=== PATIENT | female | born 1980 | race Caucasian/White ===

== ENCOUNTER 2020-07-16 09:00 | Observation (INO) | payer OTHER ==
[~2020-07-16] VITALS: Ht 162.6 cm; Wt 69.4 kg
[2020-07-16 10:31] VITALS: BP 107/60
[2020-07-16 10:38] LABS: BASOPHILS % (AUTO) 0.4 % (0.0-2.0); EOSINOPHILS % (AUTO) 0.5 % (1.0-6.0); HEMATOCRIT 32.3 % (36-46); HEMOGLOBIN 10.6 g/dL (12.0-16.0); LYMPHOCYTES # (AUTO) 1.4 K/uL (1.0-4.8); LYMPHOCYTES % (AUTO) 17.8 % (22.0-44.0); MEAN CORPUSCULAR HEMOGLOBIN 28.2 pg (26.0-34.0); MEAN CORPUSCULAR HGB CONC 32.9 G/dL (31.0-37.0); MEAN CORPUSCULAR VOLUME 86 fL (80-100); MONOCYTES # (AUTO) 0.4 K/uL (0.1-1.0); MONOCYTES % (AUTO) 5.1 % (2.0-9.0); NEUTROPHILS # (AUTO) 6.2 K/uL (1.8-7.7); NEUTROPHILS % (AUTO) 76.2 % (40.0-70.0); PLATELET COUNT (AUTO) 262 K/uL (150-450); RED BLOOD CELL COUNT(AUTO) 3.77 MIL/uL (4.00-5.20); RED CELL DISTRIBUTION WIDTH 14.7 % (11.5-14.5)
[2020-07-16 11:21] LABS: COVID AG,FIA SOURCE NASOPHARYNGEAL
== END 2020-07-16 11:40 | disposition home or self-care (01) ==
LOC: 4S 09:00
PROVIDERS: ADMIT Obstetrics & Gynecology; ATTEND Obstetrics & Gynecology
DX: O09.523 Supervision of elderly multigravida, third trimester (principal); Z20.828 Contact with and (suspected) exposure to other viral communicable diseases; Z3A.38 38 weeks gestation of pregnancy
CPT/HCPCS: 59025; 87426; 99219

== ENCOUNTER 2020-07-20 21:13 | Inpatient (IN) | payer OTHER ==
[~2020-07-20] VITALS: Ht 162.6 cm; Wt 69.4 kg
[2020-07-20] MEDS ORDERED: PREN-196 PO (22:31)
[2020-07-20] MEDS ORDERED: INFLUENZA VIRUS VACCINE QVS 2020-21 (6MO+)/PF 60 MCG/0.5 ML SYRINGE IM ONE (22:45)
[2020-07-20] MEDS ORDERED: RINGERS SOLUTION,LACTATED 1,000 ML IV SCH (23:00)
[2020-07-20] MEDS ORDERED: OXYTOCIN 30 UNITS/LACT RINGERS 500 ML IV ONE (23:00)
[2020-07-20] MEDS ORDERED: RINGERS SOLUTION,LACTATED 1,000 ML IV PRN (23:00)
[2020-07-20] MEDS ORDERED: METOCLOPRAMIDE HCL 5 MG/ML 2 ML VIAL IVP PRN (23:00)
[2020-07-20] MEDS ORDERED: MISOPROSTOL 25 MCG TABLET PO ONE (23:00)
[2020-07-20] MEDS ORDERED: CITRIC ACID/SODIUM CITRATE 30 ML SOLUTION UDCUP PO PRN (23:00)
[2020-07-20 23:19] LABS: BASOPHILS % (AUTO) 0.2 % (0.0-2.0); EOSINOPHILS % (AUTO) 0.7 % (1.0-6.0); HEMATOCRIT 31.3 % (36-46); HEMOGLOBIN 10.4 g/dL (12.0-16.0); LYMPHOCYTES # (AUTO) 1.7 K/uL (1.0-4.8); LYMPHOCYTES % (AUTO) 20.7 % (22.0-44.0); MEAN CORPUSCULAR HEMOGLOBIN 28.5 pg (26.0-34.0); MEAN CORPUSCULAR HGB CONC 33.4 G/dL (31.0-37.0); MEAN CORPUSCULAR VOLUME 85 fL (80-100); MONOCYTES # (AUTO) 0.4 K/uL (0.1-1.0); MONOCYTES % (AUTO) 4.6 % (2.0-9.0); NEUTROPHILS # (AUTO) 6.2 K/uL (1.8-7.7); NEUTROPHILS % (AUTO) 73.8 % (40.0-70.0); PLATELET COUNT (AUTO)-OB 280 K/uL (150-450); RED BLOOD CELL COUNT(AUTO) 3.66 MIL/uL (4.00-5.20); RED CELL DISTRIBUTION WIDTH 14.8 % (11.5-14.5)
[2020-07-20] MEDS: RINGERS SOLUTION,LACTATED 1,000 ML IV SCH (23:36)
[2020-07-21] MEDS ORDERED: ROPIVACAINE HCL/PF 0.2% 100 ML ED ONE (02:45)
[2020-07-21] MEDS ORDERED: ROPIVACAINE HCL/PF 0.2% 100 ML ED PRN (03:15)
[2020-07-21] MEDS ORDERED: DiphenhydrAMINE HCL 50 MG/ML VIAL IVP PRN (03:15)
[2020-07-21] MEDS ORDERED: ONDANSETRON HCL 4 MG/2 ML VIAL IVP PRN (03:15)
[2020-07-21] MEDS ORDERED: NALBUPHINE HCL 10 MG/ML VIAL IVP PRN (03:15)
[2020-07-21] MEDS: RINGERS SOLUTION,LACTATED 1,000 ML IV SCH ×3 (03:35→05:53)
[2020-07-21] MEDS ORDERED: TERBUTALINE SULFATE 1 MG/ML VIAL ONE (04:51)
[2020-07-21] MEDS ORDERED: TERBUTALINE SULFATE 1 MG/ML VIAL SQ ONE (05:00)
[2020-07-21] MEDS ORDERED: SODIUM CHLORIDE 0.9% 1,000 ML ONE (05:28)
[2020-07-21] MEDS ORDERED: METHYLERGONOVINE MALEATE 0.2 MG/ML VIAL IM ONE (07:15)
[2020-07-21] MEDS ORDERED: ACETAMINOPHEN/CODEINE 300-30 MG TABLET PO PRN ×2 (07:30)
[2020-07-21] MEDS ORDERED: BENZOCAINE 20%/MENTHOL 56 GM SPRAY CANISTER TP PRN (07:30)
[2020-07-21] MEDS ORDERED: LANOLIN 7 GM OINTMENT TP PRN (07:30)
[2020-07-21] MEDS ORDERED: GLYCERIN/WITCH HAZEL LEAF 40 PADS JAR TP PRN (07:30)
[2020-07-21] MEDS ORDERED: OXYGEN THERAPY IH SCH (08:00)
[2020-07-21] MEDS ORDERED: MAGNESIUM HYDROXIDE SUSPENSION 30 ML UDCUP PO SCH (09:00)
[2020-07-21] MEDS: IBUPROFEN 800 MG TABLET PO SCH ×3 (11:35→22:57)
[2020-07-22] MEDS: IBUPROFEN 800 MG TABLET PO SCH (05:38)
[2020-07-22] MEDS ORDERED: IBUP-2070 PO (09:37)
== END 2020-07-22 12:45 | disposition home or self-care (01) | DRG 807 ==
LOC: 4S 21:13 → OBSVTOIN 21:13
PROVIDERS: ADMIT Obstetrics & Gynecology; ATTEND Obstetrics & Gynecology
PROC: 3E02340 Introduction of Influenza Vaccine into Muscle, Percutaneous Approach (ICD-10-PCS; 2020-07-20)
PROC: 10E0XZZ Delivery of Products of Conception, External Approach (ICD-10-PCS; principal; 2020-07-21)
PROC: 3E0R3BZ Introduction of Anesthetic Agent into Spinal Canal, Percutaneous Approach (ICD-10-PCS; 2020-07-21)
PROC: 00HU33Z Insertion of Infusion Device into Spinal Canal, Percutaneous Approach (ICD-10-PCS; 2020-07-21)
DX: O69.81X0 Labor and delivery complicated by cord around neck, without compression, not applicable or unspecified (principal); Z37.0 Single live birth; Z3A.39 39 weeks gestation of pregnancy; Z23 Encounter for immunization
CPT/HCPCS: 86850; 86900; 86901; 90686; J2210; J2590; J2795; J3105; J7030; J7120